=== PATIENT | female | born 1945 | race Two or more races ===

== ENCOUNTER 2022-12-04 07:23 | Day surgery (SDC) | payer MEDICAID ==
[~2022-12-04] VITALS: Ht 152.4 cm; Wt 70.0 kg
[2022-12-04 07:50] VITALS: BP 156/80
[2022-12-04] MEDS ORDERED: normal saline 1000ml 1,000 ML IV PRN (07:50)
[2022-12-04] MEDS ORDERED: IRBE150T51 PO (07:53)
[2022-12-04] MEDS ORDERED: METF-436 PO (07:53)
[2022-12-04] MEDS ORDERED: OMEP40CA21 PO (07:53)
[2022-12-04] MEDS ORDERED: FERR325T28 PO (07:53)
[2022-12-04 08:34] LABS: BASOPHILS % (AUTO) 0.5 % (0-1); EOSINOPHILS # (AUTO) 0.1 X10'3 (0-0.9); EOSINOPHILS % (AUTO) 1.5 % (0-6); HEMATOCRIT 30.4 % (35.0-45.0); HEMOGLOBIN 9.8 g/dl (12.0-16.0); LYMPHOCYTES # (AUTO) 1.7 X10'3 (1.1-4.8); LYMPHOCYTES % (AUTO) 21.5 % (21-51); MEAN CORPUSCULAR HEMOGLOBIN 29.6 PG (27.0-31.0); MEAN CORPUSCULAR HGB CONC 32.4 g/dL (33.0-36.5); MEAN CORPUSCULAR VOLUME 91.3 FL (78-98); MEAN PLATELET VOLUME 9.7 FL (7.4-10.4); MONOCYTES # (AUTO) 0.7 X10'3 (0-0.9); MONOCYTES % (AUTO) 8.7 % (2-12); NEUTROPHILS # (AUTO) 5.5 X10'3 (1.8-7.7); NEUTROPHILS % (AUTO) 67.8 % (42-75); PLATELET COUNT 218 X10'3 (140-440); RED BLOOD COUNT 3.33 X10'6 (4.20-5.60); RED CELL DISTRIBUTION WIDTH 18.9 % (11.5-14.5); WHITE BLOOD COUNT 8.1 X10'3 (4.5-11.0)
[2022-12-04 09:24] LABS: ANISOCYTOSIS 2+; PLATELET ESTIMATE NORMAL
[2022-12-04 09:26] LABS: ELLIPTOCYTES FEW; SCHISTOCYTES FEW
[2022-12-04] MEDS ORDERED: heparin sodium, porcine/PF 100unit/ml 5ML syringe ONE (10:04)
[2022-12-04] MEDS ORDERED: fentaNYL/PF 50MCG/1 ML 2ML syringe ONE (10:04)
[2022-12-04] MEDS ORDERED: LIDOcaine 1% 30ml preserv. free vial ONE (10:04)
[2022-12-04] MEDS ORDERED: midazolam 1 mg/ML 2ml injection ONE (10:04)
[2022-12-04 10:45] VITALS: BP 139/65
[2022-12-04 11:00] VITALS: BP 131/65
[2022-12-04 11:15] VITALS: BP 135/72
[2022-12-04 11:30] VITALS: BP 136/69
[2022-12-04 11:50] VITALS: BP 157/93
== END 2022-12-04 12:20 | disposition home or self-care (01) ==
LOC: SSTAY O 07:23
PROVIDERS: ATTEND Radiology Vascular & Interventional Radiology
DX: C54.1 Malignant neoplasm of endometrium (principal); I10 Essential (primary) hypertension; E11.9 Type 2 diabetes mellitus without complications; K21.9 Gastro-esophageal reflux disease without esophagitis; D50.9 Iron deficiency anemia, unspecified; Z79.84 Long term (current) use of oral hypoglycemic drugs; Z79.899 Other long term (current) drug therapy
CPT/HCPCS: 36415; 36561; 76937; 77001; 82948; 85025; 85610; 99152; C1788; C1894; J1642; J2250; J3010; J3490; J7030; 85008; 99153; A4620